=== PATIENT | female | born 1955 | race Caucasian/White ===

== ENCOUNTER 2017-03-01 06:51 | Inpatient (IN) | payer SELFPAY ==
[~2017-03-01] VITALS: Ht 170.2 cm; Wt 112.0 kg
[2017-03-04] MEDS ORDERED: OMEGA-3 DPS1000 MG PO (08:45)
[2017-03-04] MEDS ORDERED: XARELTO20 MG PO (08:46)
[2017-03-04] MEDS ORDERED: EFFEXOR XR75 MG PO (08:46)
[2017-03-04] MEDS ORDERED: LASIX DPS20 MG PO (08:46)
[2017-03-04] MEDS ORDERED: GLUCOPHAGE-DPS500 MG PO (08:46)
[2017-03-04] MEDS ORDERED: TOUJEO SOL300 UNIT/1 SQ (08:46)
[2017-03-04] MEDS ORDERED: METOPROLOL TART25 MG PO (08:46)
--- NOTE | 2017-03-04 08:46 | OR ---
ADMIT: 03/01/2017 RM/LOC: 617 [facility] MR#: [id number] [address] [address] MILLIE MALIK [address] [address] Operative/Delivery Room Report SEX: F AGE: 61 : 1955 SURGERY DATE: 03/01/2017 SURGEON: Skip Garcia MD PREOPERATIVE DIAGNOSIS: Right renal calculus. POSTOPERATIVE DIAGNOSIS: Right renal calculus. OPERATION: Cystoscopy with placement of right double-J ureteral stent. ANESTHETIC: General. INDICATION FOR PROCEDURE: This 61-year-old female developed sudden onset of right flank pain. On CT scan, she was found to have a large right renal calculus at the ureteropelvic junction causing obstruction at that point. She is to undergo cystoscopy with stent placement. DESCRIPTION OF OPERATION: After a suitable general endotracheal anesthetic was obtained, the patient was placed in the dorsal lithotomy position with her genitalia and surrounding skin prepped and draped in the usual sterile fashion. The 23-Ugandan Olympus cystoscope was inserted under direct visualization with the anterior urethra appearing to be normal. Upon entering the bladder, the trigone was well developed with both ureteral orifices in their normal position with clear efflux of urine from both. The bladder mucosa was 1+ trabeculated, but without evidence of infection, tumor, or stone disease. A 0.03 Glidewire was inserted into the right ureteral orifice and advanced under fluoroscopic control until the tip of the Glidewire was in the renal pelvis. Over the Glidewire, a 7-Ugandan, 26 cm double-J ureteral stent was inserted, positioning the stent within the renal pelvis, ureter, and bladder. The string was removed from the distal end of the stent. The Glidewire was then removed leaving the stent indwelling and in good position as noted on fluoroscopy. The bladder was then drained, cystoscope removed. The patient having tolerated the procedure and was then taken to the recovery room in satisfactory condition. DISCHARGE INSTRUCTIONS: She will return to the office in 1 week with a followup KUB. At that time, it will be discussed as far as further treatment of her stone disease. Skip Garcia MD/ ryan JOB #: [id number] CC: Wili Gibson, Attending Physician Wili Gibson, Family Physician
--- NOTE | 2017-03-04 08:46 | CO ---
ADMIT: 03/01/2017 RM/LOC: 617 [facility] MR#: [id number] [id number] [address] MILLIE MALIK [address] [address] Consultation SEX: F AGE: 61 : 1955 DATE OF CONSULTATION: 03/01/2017 ATTENDING PHYSICIAN: Wili Gibson CONSULTING PHYSICIAN: Skip Garcia MD PROBLEM: Right renal calculus. HISTORY OF PRESENT ILLNESS: This 61-year-old female came to the office having had intermittent right flank pain for the last 3-4 days. A renal colic CT scan was obtained in [place] and found to have a 1.9 x 0.9 cm stone in the right renal pelvis at the ureteropelvic junction causing moderate obstruction of the right renal unit. She has no prior history of nephrolithiasis and has been voiding without urgency, frequency, or dysuria. There has been no gross hematuria. No fever or chills. She denies previous urologic surgery or recurrent urinary tract infections. PAST MEDICAL HISTORY: MEDICATIONS: 1. Aspirin 81 mg daily. 2. Symbicort 2 puffs b.i.d. 3. Caltrate 600 one daily. 4. Flonase 2 puffs daily. 5. Lasix 20 mg daily. 6. Insulin glargine 50 units subcu daily. 7. Lisinopril 20 mg daily. 8. Melatonin 1 tablet daily. 9. Metformin 1000 mg tablet twice a day. 10.Metoprolol 25 mg b.i.d. 11.Potassium chloride 20 mEq daily. 12.Xarelto 20 mg daily. 13.Tramadol p.r.n. for pain. 14.Effexor XR 75 mg 3 tablets daily. ALLERGIES: FLONASE. OPERATIONS: Hysterectomy and cholecystectomy. REVIEW OF SYSTEMS: She does have a history of adult-onset diabetes mellitus along with COPD. FAMILY HISTORY: Negative for urologic problems. SOCIAL HISTORY: She states that she does not smoke. PHYSICAL EXAMINATION: GENERAL: This is a healthy 61-year-old, in no acute distress. HEENT: Unremarkable. ADMIT: 03/01/2017 RM/LOC: 617 [facility] MR#: [id number] [address] [address] MALIKMILLIE [address] [place] [address] Consultation SEX: F AGE: 61 : 1955 NECK: Supple without adenopathy. ABDOMEN: Soft, mild tenderness in the right upper quadrant and flank region. No masses were palpable. EXTREMITIES: Had full range of motion without deformity. NEUROLOGICAL: She is grossly intact. ASSESSMENT: Right renal calculus with associated obstruction to the right renal unit. PLAN: She will undergo cystoscopy with placement of right double-J ureteral stent this afternoon. Skip Garcia MD/ ryan JOB #: [id number] CC: Wili Gibson, Attending Physician Wili Gibson, Family Physician Wili Gibson MD
[2017-03-04] MEDS ORDERED: PROVENTIL HFA6.7 GM IH (08:47)
[2017-03-04] MEDS ORDERED: MELATONIN5 M2 PO (08:47)
[2017-03-04] MEDS ORDERED: FLONASE 0.05% D16 GM NS (08:47)
[2017-03-04] MEDS ORDERED: ZESTRIL DPS20 MG PO (08:47)
[2017-03-04] MEDS ORDERED: CRESTOR20 MG PO (08:48)
[2017-03-04] MEDS ORDERED: SYMBICORT160 MCG/6 IH (08:48)
[2017-03-04] MEDS ORDERED: NORCO 5-325 TA1 EACH PO (08:48)
[2017-03-04] MEDS ORDERED: DUONEB DPS3 ML IH (08:50)
[2017-03-04] MEDS ORDERED: CALTRATE-600 W600 MG PO (08:50)
[2017-03-04] MEDS ORDERED: TYLENOL EXTRA500 M1 PO (08:51)
[2017-03-04] MEDS ORDERED: COLACE-DPS100 MG PO (08:51)
[2017-03-04] MEDS ORDERED: ASA CHILDREN'S81 MG PO (08:51)
[2017-03-04] MEDS ORDERED: LEVAQUIN500 MG PO (08:52)
--- NOTE | 2017-03-07 15:34 | ER ---
ADMIT: 03/01/2017 RM/LOC: 617 [facility] MR#: [id number] [address] [address] MILLIE MALIK [address] [address] Emergency Room Report SEX: F AGE: 61 : 1955 DATE: 03/01/2017 ADDENDUM: This is a 61-year-old white female, I dictated recently. We are going to admit her through Dr. Gibson. She has multiple medical problems including diabetes, hypertension, and atrial fibrillation. She will be admitted by Dr. Gibson, Dr. Garcia will consult for the stone. CONDITION ON DISCHARGE: Fair. Venkat Collazo MD/ ryan JOB #: [id number] CC: Wili Gibson MD, Attending Physician Wili Gibson MD, Family Physician
--- NOTE | 2017-03-07 15:34 | ER ---
ADMIT: 03/01/2017 RM/LOC: 617 [facility] MR#: [id number] [address] [address] MILLIE MALIK [address] [address] Emergency Room Report SEX: F AGE: 61 : 1955 DATE: 03/01/2017 ADDENDUM: This 61-year-old white female coming down from [place] with right flank pain. She has had kidney stones before and has seen Dr. Garcia and urologist before. She is otherwise stable. She will be admitted or discharged by Dr. Garcia. He will see her. CONDITION ON DISCHARGE: Fair. Venkat Collazo MD/ ryan JOB #: [id number] CC: Wili Gibson MD, Attending Physician Wili Gibson MD, Family Physician
--- NOTE | 2017-04-07 15:50 | HP ---
ADMIT: 03/01/2017 RM/LOC: 617 [facility] MR#: [id number] [address] [address] MILLIE MALIK [address] [address] History and Physical SEX: F AGE: 61 : 1955 DATE OF SERVICE: CHIEF COMPLAINT: Right abdominal pain and flank pain. HISTORY OF PRESENT ILLNESS: This is a 61-year-old white female, who normally is cared for by Dr. Rankin in [facility], presented to the emergency room as a transfer from [facility] with a right-sided kidney stone. She states she has had a known large stone in the right side, nephrolithiasis since last fall. She has had some intermittent discomfort, kind of flank pain, right colic gutter type discomfort. However, over the last several months, the pain has increased, it has gotten more frequent and then last night, it became unbearable to the point where she just could not stand it. She could not get comfortable. She went to the emergency room in [facility], had an evaluation where a repeat CAT scan did show that the stone has lodged at the right UP junction with some right-sided hydronephrosis and perinephric stranding. Therefore, she is being admitted for further workup and stabilization. In the emergency room in [facility], her blood sugar was over 700; it was rechecked when she got down here, it is in the 400s now. She states her sugars usually run in the 100s to 200s. PAST MEDICAL HISTORY: Remarkable for: 1. Diabetes mellitus type 2. 2. Paroxysmal atrial fibrillation. 3. Hyperlipidemia. 4. Hypertension. 5. COPD. 6. Obstructive sleep apnea. 7. Depression and anxiety. PAST SURGICAL HISTORY: 1. TIAGO with BSO. 2. Cholecystectomy. 3. Failed cardiac ablation. CURRENT MEDICATIONS: 1. Tylenol 500 mg two tabs q.6 hours p.r.n. 2. Albuterol HFA two puffs q.6 hours p.r.n. 3. DuoNeb treatment q.i.d. p.r.n. 4. Aspirin 81 mg daily. 5. Symbicort two puffs b.i.d. 6. Calcium carbonate with vitamin D one tab daily. 7. CPAP. 8. Fluticasone two sprays each side daily. 9. Lasix 20 mg q.a.m. 10.Toujeo 50 units subcutaneous daily. 11.Lisinopril 20 mg at bedtime. 12.Melatonin 50 mg at bedtime. 13.Metformin 1000 mg b.i.d. 14.Metoprolol 25 mg b.i.d. ADMIT: 03/01/2017 RM/LOC: 617 [facility] MR#: [id number] [address] [address] [place] [address] History and Physical SEX: F AGE: 61 : 1955 15.[place]-3. 16.Fish oil 1000 mg daily. 17.Oxygen 2 L at bedtime. 18.Potassium chloride 20 mEq one tab daily. 19.Xarelto 20 mg daily. 20.Crestor 20 mg daily. 21.Tamsulosin 0.4 mg one tab daily. 22.Tramadol 50 mg q.6 hours p.r.n. 23.Venlafaxine XR 75 mg three capsules daily. ALLERGIES: ADVAIR AND LATEX. FAMILY HISTORY: Father , had glaucoma and Alzheimer's. Mother in good health. SOCIAL HISTORY: Does not smoke. Does not drink. She works at [employer]. She is a caregiver for mentally disabled. REVIEW OF SYSTEMS: GENERAL: She has had fevers and chills. HEENT: No headaches, blurry vision, or double vision. CARDIAC: No chest pains. PULMONARY: No shortness of breath. GI: Has had nausea and vomiting. No diarrhea. : No dysuria, urgency, or frequency. ENDOCRINE: No polyuria or polydipsia. PSYCH: History of depression and anxiety, which is stable. All others are negative. PHYSICAL EXAMINATION: VITAL SIGNS: Blood pressure is 180/98, pulse 91, respirations 18, temp 96.9. GENERAL: She is in no acute distress. She is alert. She is diaphoretic. HEENT: Pupils are reactive. Conjunctivae are clear. NECK: Soft and supple. LUNGS: With decreased breath sounds, but appear clear. HEART: Regular. ABDOMEN: Tender in right colic gutter guarding. No rebound. No guarding. EXTREMITIES: No cyanosis. No clubbing. No edema. SKIN: No rashes. NEUROLOGIC: Cranial nerves II through XII grossly intact. No focal deficits. ADMIT: 03/01/2017 RM/LOC: 617 [facility] MR#: [id number] [address] [address] HELENA MILLIE [address] [place] [address] History and Physical SEX: F AGE: 61 : 1955 ASSESSMENT: 1. Right ureteral stone at the ureteropelvic junction. 2. Diabetes mellitus type 2. 3. Hypertension. 4. Paroxysmal atrial fibrillation. 5. Chronic obstructive pulmonary disease. 6. Obstructive sleep apnea. PLAN: We will admit. Start on IV antibiotics. Check blood cultures, lactic acid, and procalcitonin. Consult Urology. She has already been given 10 units of insulin in the emergency room in [facility]. We will recheck her sugar, do sliding scale, and change treatment plan as hospital course dictates. Wili Gibson MD/ ryan JOB #: [id number] CC: Wili Gibson, Attending Physician Wili Gibson, Family Physician
--- NOTE | 2017-04-29 07:44 | DS ---
ADMIT: 03/01/2017 RM/LOC: 617 [facility] MR#: [id number] [id number] [id number] [place], [place] [address] MILLIE MALIK [address] [address] Discharge Summary SEX: F AGE: 61 : 1955 ADMISSION DATE: 03/01/2017 DISCHARGE DATE: 03/03/2017 FINAL DIAGNOSES: 1. Right ureteral stone. 2. Diabetes mellitus type 2. 3. Hypertension. 4. Paroxysmal atrial fibrillation. 5. Chronic obstructive pulmonary disease. 6. Obstructive sleep apnea. REASON FOR ADMISSION: This is a 61-year-old white female, who complained of right-sided kidney stone and pain that had gradually gotten worse over the past several months to the point where the pain was unbearable the last evening. So went to the emergency room in [place] where she was found to have a right ureteral stone associated with nausea, vomiting, fevers, and chills. Therefore, is being transferred for urology care. HOSPITAL COURSE: Was admitted on 03/01/2017, started on IV Levaquin, ALLOCATIONS CLERK for pain control. We did do blood cultures and lactic acid levels. Urology was consulted. Sliding scale insulin was used for a tight blood sugar control. 03/01 she underwent a cysto with right ureteral stent placement. On 03/07 she was still using a morphine ALLOCATIONS CLERK so we did try to wean that. Placed her on Lortab. Decreased IV fluids 75 to mL/h. Resumed her Xarelto and aspirin. Placed on an ADA diet. On 03/03 she denied pain, feeling better, felt stable for discharge. DISCHARGE INSTRUCTIONS: 1. Aspirin 81 mg at bedtime. 2. Caltrate 600 mg daily. 3. Crestor 10 mg two tabs at bedtime. 4. Effexor XR 225 mg daily. 5. Glucophage 1000 mg b.i.d. 6. Klor-Con 20 mEq daily. 7. Lasix 20 mg daily. 8. Lopressor 25 mg b.i.d. ADMIT: 03/01/2017 RM/LOC: 617 [facility] MR#: [id number] [address] [address] MILLIE MALIK [address] [address] Discharge Summary SEX: F AGE: 61 : 1955 9. Melatonin 5 mg at bedtime. 10.[place]-3 1000 mg b.i.d. 11.Xarelto 20 mg daily. 12.Zestril 20 mg at bedtime. 13.Symbicort 160/4.5 two puffs b.i.d. 14.Flonase 2 sprays daily. 15.Colace 100 mg b.i.d. p.r.n. 16.Lortab 5-10 Q 4 p.r.n. 17.Toujeo 50 units at bedtime. 18.Levaquin 500 mg daily for 7 days. Follow up with primary care doctor in 7-10 days. General diet, follow up sooner if needed and follow up with Urology per their recommendations. Wili Gibson MD/ beto JOB #: [id number] CC: Wili Gibson MD, Attending Physician Wili Gibson MD, Family Physician
== END 2017-03-03 12:45 | disposition home or self-care (01) | DRG 694 ==
LOC: ER 06:51 → 6PED 09:00
PROVIDERS: ADMIT Family Medicine
PROC: 0T768DZ Dilation of Right Ureter with Intraluminal Device, Via Natural or Artificial Opening Endoscopic (ICD-10-PCS; principal; 2017-03-01)
DX: N13.2 Hydronephrosis with renal and ureteral calculous obstruction (principal); E11.65 Type 2 diabetes mellitus with hyperglycemia; Z99.81 Dependence on supplemental oxygen; I10 Essential (primary) hypertension; I48.0 Paroxysmal atrial fibrillation; E78.5 Hyperlipidemia, unspecified; J44.9 Chronic obstructive pulmonary disease, unspecified; E66.9 Obesity, unspecified; Z68.38 Body mass index [BMI] 38.0-38.9, adult; G47.33 Obstructive sleep apnea (adult) (pediatric); F32.9 Major depressive disorder, single episode, unspecified; F41.9 Anxiety disorder, unspecified; Z79.82 Long term (current) use of aspirin; Z79.01 Long term (current) use of anticoagulants; Z79.4 Long term (current) use of insulin